=== PATIENT | male | born 1995 | race Caucasian/White ===

== ENCOUNTER 2018-12-19 14:30 | Emergency (ER) | payer SELFPAY ==
--- NOTE | 2018-12-19 15:11 | ED Physician Documentation ---
Sore Throat/Dental Pain - HISTORIAN Historian: patient - HPI Stated Complaint: Tooth Pain Chief Complaint: Dental Pain Additional Information: Patient presents to ED with a 2 day history of left lower jaw/tooth pain. Patient has a broken tooth. He has tried tylenol and ibuprofen without much relief. Onset: days ago (2) Context: Fractured Tooth Associated Symptoms: denies: fever Worsened By: heat, cold - ROS CONST: no problems CVS/RESP: none GI/: denies: nausea, vomiting MS/SKIN/LYMPH: denies: rash NEURO/PSYCH: headache - PAST HX Past History: none Other History: none Allergies/Adverse Reactions: Allergies Allergy/AdvReac Type Severity Reaction Status Date / Time No Known Allergies Allergy Verified 10/24/14 11:37 Home Medications: Ambulatory Orders Medication Instructions Recorded Cyclobenzaprine HCl [Flexeril] 10 mg PO TID PRN #15 tablet 10/24/14 Dextroamphetamine/Amphetamine 30 mg PO 10/24/14 [Adderall 30 mg Tablet] Ibuprofen [Advil] 800 mg PO TID PRN #30 tablet 10/24/14 Penicillin V Potassium [Pen V K] 500 mg PO QID #40 tablet 12/19/18 - SOCIAL HX Smoking History: cigarettes, greater than 1 pack/day Alcohol Use: none Drug Use: none - FAMILY HX Family History: No - VITAL SIGNS Vital Signs: Vital Signs Temp Pulse Resp BP Pulse Ox 97.9 F 75 16 130/80 100 12/19/18 14:31 12/19/18 14:31 12/19/18 14:31 12/19/18 14:31 12/19/18 14:31 - REVIEWED ASSESSMENTS Nursing Assessment Reviewed: Yes Vitals Reviewed: Yes Dental Pain Physical Exam - EXAM General Appearance: no acute distress, alert Head/Neck: head nml inspection. No: cervical lymphadenopathy Mouth/Throat: lips nml, dental tenderness (left lower), widespread dental decay Ear/Nose: nml inspection Respiratory: no resp. distress CVS: reg. rate & rhythm, heart sounds nml Abdomen: soft Extremities: non-tender Skin: warm/dry Neuro/Psych: none Discharge Clincal Impression: Dental caries Prescriptions: Penicillin V Potassium [Pen V K] 500 mg PO QID #40 tablet Referrals: Primary Doctor,No [Primary Care Provider] - 2 Days Additional Instructions: 1. Tylenol and/or Ibuprofen as needed for pain. You may take these with Tramadol 2. Tramadol as needed for pain 3. Take antibiotics until course is complete 4. Salt/baking soda rinses after each meal 5. Follow up with Dentist as soon as possible 6. Return to ER for new or worsening symptoms. Condition: Stable Disposition: 01 HOME, SELF-CARE Decision to Admit: NO Date of Decison to Admit: 12/19/18 Decision Time: 15:17
[2018-12-19 15:33] VITALS: BP 134/70
== END 2018-12-19 15:32 | disposition home or self-care (01) ==
LOC: ED 14:30
DX: K02.9 Dental caries, unspecified (principal); Z72.0 Tobacco use
CPT/HCPCS: 99281; 99282

== ENCOUNTER 2019-06-13 17:13 | Emergency (ER) | payer SELFPAY ==
[2019-06-13 17:37] VITALS: BP 122/84
--- NOTE | 2019-06-13 18:21 | ED Physician Documentation ---
Sore Throat/Dental Pain - HISTORIAN Historian: patient - HPI Stated Complaint: Dental pain Chief Complaint: Dental Pain Onset: other (This morning) Context: Dental Caries Further Comments: yes (23 year old male patient presents with complaints of right lower dental pain from broken tooth. Reports long history of dental caries with occassional abscesses.) - ROS CONST: no problems CVS/RESP: none GI/: denies: nausea, vomiting MS/SKIN/LYMPH: denies: muscle aches, rash, leg swelling, ankle swelling, other NEURO/PSYCH: none - PAST HX Past History: gum disease Allergies/Adverse Reactions: Allergies Allergy/AdvReac Type Severity Reaction Status Date / Time No Known Allergies Allergy Verified 06/13/19 17:37 Home Medications: Ambulatory Orders Medication Instructions Recorded Amoxicillin [Trimox] 500 mg PO TID #30 capsule 06/13/19 - SOCIAL HX Smoking History: cigarettes - FAMILY HX Family History: Yes - VITAL SIGNS Vital Signs: Vital Signs Temp Pulse Resp BP Pulse Ox 98.2 F 65 16 122/84 100 06/13/19 17:32 06/13/19 17:32 06/13/19 17:32 06/13/19 17:32 06/13/19 17:32 - REVIEWED ASSESSMENTS Nursing Assessment Reviewed: Yes Vitals Reviewed: Yes Dental Pain Physical Exam - EXAM General Appearance: mild distress Head/Neck: head nml inspection Mouth/Throat: gum swelling around teeth (#28, 29,30 with caries and edema around gumline), widespread dental decay Respiratory: no resp. distress CVS: reg. rate & rhythm Skin: warm/dry Neuro/Psych: No: none Discharge Clincal Impression: Dental caries Prescriptions: Amoxicillin [Trimox] 500 mg PO TID #30 capsule Referrals: Primary Doctor,No [Primary Care Provider] - 2 Days Additional Instructions: Dental Pain Ibuprofen 800mg every 8 hours x 3 days Tylenol 650-1000mg every 4 hours as needed for pain, limit your dose to 4G in 24 hours. Over the counter [employer] - follow package directions. 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 See your dentist as soon as possible Condition: Stable Disposition: 01 HOME, SELF-CARE Decision to Admit: NO Decision Time: 18:22
== END 2019-06-13 18:39 | disposition home or self-care (01) ==
LOC: ED 17:13
DX: K02.9 Dental caries, unspecified (principal)
CPT/HCPCS: 99283; 99284

== ENCOUNTER 2019-09-07 08:59 | Emergency (ER) | payer SELFPAY ==
[2019-09-07 09:11] VITALS: BP 140/72
--- NOTE | 2019-09-07 09:21 | ED Physician Documentation ---
Sore Throat/Dental Pain - HISTORIAN Historian: patient - HPI Stated Complaint: Dental pain Chief Complaint: Dental Pain Additional Information: Patient presents to ED with a 3 day history of worsening left lower tooth pain. Patient states he had some antibiotic left over from his last dental infection and started taking it yesterday. He reports the pain has improved, however, he took his last antibiotic this morning. He has a dental appointment sometime this week. Onset: days ago (3) Context: Fractured Tooth, Dental Caries Associated Symptoms: denies: fever - ROS CONST: no problems CVS/RESP: none GI/: denies: nausea MS/SKIN/LYMPH: denies: muscle aches NEURO/PSYCH: denies: headache - PAST HX Past History: gum disease Other History: none Allergies/Adverse Reactions: Allergies Allergy/AdvReac Type Severity Reaction Status Date / Time No Known Allergies Allergy Verified 09/07/19 09:11 Home Medications: Ambulatory Orders Medication Instructions Recorded Penicillin V Potassium [Pen V K] 500 mg PO TID 14 Days #42 tablet 09/07/19 - SOCIAL HX Smoking History: cigarettes Alcohol Use: none Drug Use: none - FAMILY HX Family History: No - VITAL SIGNS Vital Signs: Vital Signs Temp Pulse Resp BP Pulse Ox 97.6 F 85 16 140/72 100 09/07/19 09:00 09/07/19 09:00 09/07/19 09:00 09/07/19 09:00 09/07/19 09:00 - REVIEWED ASSESSMENTS Nursing Assessment Reviewed: Yes Vitals Reviewed: Yes Dental Pain Physical Exam - EXAM General Appearance: no acute distress, alert Head/Neck: head nml inspection, trachea midline Eyes: PERRL Mouth/Throat: widespread dental decay Respiratory: no resp. distress, breath sounds nml CVS: reg. rate & rhythm, heart sounds nml Abdomen: soft, normal bowel sounds Extremities: non-tender Skin: warm/dry Neuro/Psych: none Discharge Clincal Impression: Pain, dental Prescriptions: Penicillin V Potassium [Pen V K] 500 mg PO TID 14 Days #42 tablet Referrals: Primary Doctor,No [Primary Care Provider] - 2 Days Additional Instructions: 1. Start antibiotics today. Take until gone 2. Ibuprofen 600mg every 6 hours as needed for pain. Add Tylenol 650mg every 4 hours as needed for break through pain 3. Oral gel as needed for comfort 4. Mouth rinses after meals and snacks. 1tsp salt/ 1tsp baking soda dissolved in 4 ounces of warm water. 5. Follow up with Dentist as soon as possible 6. Return to ER for new or worsening symptoms Condition: Stable Disposition: 01 HOME, SELF-CARE Decision to Admit: NO Date of Decison to Admit: 09/07/19 Decision Time: 11:15
== END 2019-09-07 09:37 | disposition home or self-care (01) ==
LOC: ED 08:59
DX: K08.89 Other specified disorders of teeth and supporting structures (principal); F17.210 Nicotine dependence, cigarettes, uncomplicated
CPT/HCPCS: 99281; 99283